=== PATIENT | male | born 1990 | race African-American/Black ===

== ENCOUNTER 2017-11-08 12:19 | Emergency (ER) | payer SELFPAY | END 2017-11-08 15:00 | disposition home or self-care (01) | LOC: D.ER 12:19 | DX: T17.208A Unspecified foreign body in pharynx causing other injury, initial encounter (principal); X58.XXXA Exposure to other specified factors, initial encounter; Y93.89 Activity, other specified; Y92.019 Unspecified place in single-family (private) house as the place of occurrence of the external cause; F17.200 Nicotine dependence, unspecified, uncomplicated ==

== ENCOUNTER 2017-12-05 15:05 | Emergency (ER) | payer SELFPAY | END 2017-12-05 17:22 | disposition home or self-care (01) | LOC: D.ER 15:05 | DX: L30.1 Dyshidrosis [pompholyx] (principal) ==